=== PATIENT | female | born 1990 | race Caucasian/White ===

== ENCOUNTER 2019-04-04 11:19 | Emergency (ER) | payer OTHER ==
[~2019-04-04 11:19] MED LIST: Iopamidol 370 76% 100 ML VIAL ONE
[2019-04-04 11:46] LABS: #Basophils 0.2 thou/uL (0.0-0.2); #Eosinphils 0.1 thou/uL (0.0-0.7); #Lymphocytes 1.9 thou/uL (1.20-3.40); #Monocytes 0.6 thou/uL (0.11-0.59); #Neutrophils 14.9 thou/uL (1.40-6.50); %Basophils 0.9 % (0.0-1.0); %Eosinophils 0.7 % (0.0-10.0); %Lymphocytes 10.9 % (21.0-51.0); %Monocytes 3.5 % (0.0-10.0); Hemoglobin 14.6 g/dL (12.0-16.0); Mean Corpuscular HGB CONC 34.2 g/dL (32.0-36.0); Mean Corpuscular Volume 93.5 fL (78.0-98.0); Mean Platelet Volume 6.7 fL (7.4-10.4); Platelet Count 287 thou/uL (130-400); RBC Distribution Width 11.5 % (11.5-14.5); Red Blood Cell (RBC) Count 4.56 mill/uL (4.20-5.40); White Blood Cell (WBC) Count 17.8 thou/uL (4.8-10.8)
[2019-04-04 11:51] LABS: BHCG - Serum Negative (NEGATIVE); Pregs Control Background? CLEAR/WHITE (CLR/WHITE); Pregs Control Bar Appear? YES (CONTROL BAR)
[2019-04-04 11:58] LABS: ALT (SGPT) 15 U/L (8-55); AST (SGOT) 19 U/L (5-34); Albumin 4.2 g/dL (3.5-5.0); Alkaline Phosphatase 41 U/L (40-150); Anion Gap 13 mmol/L (10-20); BUN (Urea Nitrogen) 8 mg/dL (7.0-18.7); Bilirubin, Total 0.4 mg/dL (0.2-1.2); Calc. Creatinine Clearance 0 mL/min (70-130); Calcium 8.9 mg/dL (7.8-10.44); Carbon Dioxide 24 mmol/L (22-29); Chloride 108 mmol/L (98-107); Estimated GFR-MDRD 89; Glucose 114 mg/dL (70-105); Lipase 18 U/L (8-78); Potassium 3.5 mmol/L (3.5-5.1); Protein, Total 7.2 g/dL (6.0-8.3); Sodium 141 mmol/L (136-145)
[2019-04-04 12:13] LABS: Bilirubin Negative (Negative); Blood, Urine Negative (Negative); Glucose, Urine (Dipstick) Negative (Negative); Leukocyte Small (Negative); Nitrite Negative (Negative); Protein, Urine (Dipstick) Negative (Neg-Trace); Urobilinogen 0.2 mg/dL (Less than 2)
[2019-04-04 12:14] LABS: Clarity Hazy (Clear)
[2019-04-04 12:17] LABS: Pregnancy Test - Urine (BHCG) Negative (Negative); Pregu Control Background? CLEAR/WHITE (CLR/WHITE); Pregu Control Bar Appear? YES (CONTROL BAR)
[2019-04-04] MEDS ORDERED: Morphine 4 MG/ML VIAL ONE (12:18)
[2019-04-04] MEDS ORDERED: Ondansetron PF 4 MG/2 ML Vial ONE (12:18)
[2019-04-04 12:19] LABS: Bacteria/HPF 2+ HPF (None Seen); RBC/HPF None Seen HPF (0-3)
--- NOTE | 2019-04-04 14:09 | CT ---
CT OF THE ABDOMEN AND PELVIS WITH IV CONTRAST INDICATION: Right lower quadrant abdominal pain concern for appendicitis COMPARISON: None FINDINGS: ABDOMEN: Lung bases: Clear Liver: No focal lesion. Gallbladder: Normal appearing. Pancreas: Normal. Adrenal glands: Normal. Spleen: Normal. Kidneys: Normal. Retroperitoneum of the upper abdomen: No lymphadenopathy or free fluid is identified. Pelvis: Small and large bowel: There is a mild amount of retained stool within the colon. There is a normal a ppendix in the right lower quadrant of the abdomen. Bladder: Normal. Rectal and perirectal soft tissues:Normal. Reproductive structures: Normal. Free fluid in pelvis: No free fluid is evident. Lymphadenopathy pelvis: No lymphadenopathy is evident. Osseous structures: No acute osseous abnormality. No destructive osteolytic or osteoblastic lesion i s identified. IMPRESSION: 1. Normal appendix in the right lower quadrant. No CT explanation for the patient's right lower quadr ant abdominal pain.
--- NOTE | 2019-04-04 17:32 | ULT ---
RIGHT UPPER QUADRANT ULTRASOUND CLINICAL HISTORY: Nausea vomiting and abdominal pain. COMPARISON: CT the abdomen and pelvis with contrast dated April 04, 2019 FINDINGS: Liver:Normal echotexture without focal mass. Bile ducts: No intrahepatic or extrahepatic biliary dilation.; common bile duct: 0.35cm Gallbladder: Normal appearing. Brian's sign:None Main portal vein:Patent with hepatopedal flow. Pancreas: Visualized pancreas appears normal. Right kidney: No pelvicalyceal dilatation. Right kidney measuring 9.9 x 4.2 x 5.9 cm in length. Additional findings: None. IMPRESSION: Normal RUQ ultrasound.
--- NOTE | 2019-04-04 17:48 | ULT ---
Pelvic sonogram transabdominal and transvaginal imaging with duplex evaluation HISTORY: Right lower quadrant pain. FINDINGS: Urinary bladder is decompressed. Uterus is retroverted and has a heterogeneous echotexture. It measures up to 6.3 cm. Endometrium is 0.2 cm thickness. Tiny nonspecific echogenic focus is noted at the lower uterine segment. Tiny calcification? Physiologic amount of free fluid. Right ovary not visualized with transabdominal or transvaginal imaging. Left ovary is 1.8 cm. Small f ollicles with good color and spectral Doppler flow. IMPRESSION: Retroverted uterus. No significant abnormalities are demonstrated.
[2019-04-04] MEDS ORDERED: Lidocaine 1% PF 5 ML VIAL ONE (18:12)
[2019-04-04] MEDS ORDERED: cefTRIAXone\\ROCEPHIN 250 MG VIAL ONE (18:12)
[2019-04-05 20:36] LABS: Chlamydia by PCR Not Detected (NotDetected); GC by PCR Not Detected (NotDetected)
== END 2019-04-04 18:20 | disposition home or self-care (01) ==
LOC: SCSER 11:19
DX: R10.2 Pelvic and perineal pain (principal)
CPT/HCPCS: 74177; 76705; 76856; 80053; 81003; 81015; 81025; 83690; 84703; 85025; 87480; 87491; 87510; 87591; 87660; 93976; 96361; 96372; 96374; 96375; J0696; J2001; J2270; J2405; Q9967